=== PATIENT | female | born 2000 | race Caucasian/White ===

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

== ENCOUNTER 2020-04-09 23:03 | Emergency (ER) | payer MEDICAID ==
--- NOTE | 2020-04-10 | EDM.PDOC ---
ED HPI GENERAL MEDICAL PROBLEM - General Chief Complaint: Abdominal Pain Stated Complaint: upper abd pain Time Seen by Provider: 04/09/20 23:50 Source of Information: Reports: Patient History Limitations: Reports: No Limitations - History of Present Illness INITIAL COMMENTS - FREE TEXT/NARRATIVE: 3 weeks post , patient developed RUQ pain at 2100 tonight, took ibuprofen at home with minimal relief. She states she has had gallbladder issues throughout her , altered her diet. The pain started today after eating , then resolved but returned again. Denies SOB, CP, urinary symptoms, vaginal bleeding, constipation. Patient is nursing son. Onset: Today Quality: Reports: Sharp, Stabbing Severity: Mild Improves with: Reports: None Worsens with: Reports: Movement Associated Symptoms: Reports: No Other Symptoms Treatments W[employer] SUBCONTRACTOR: Reports: NSAIDS Right Middle Abdominal Pain Score (Numeric/FACES): 6 - Related Data Allergies Allergy/AdvReac Type Severity Reaction Status Date / Time No Known Allergies Allergy Verified 04/09/20 23:11 Past Medical History - Past Health History Medical/Surgical History: Denies Medical/Surgical History HEENT History: Reports: Other (See Below) Other HEENT History: Deviated septum Cardiovascular History: Reports: None Respiratory History: Reports: Asthma Gastrointestinal History: Reports: None Genitourinary History: Reports: None 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: Neurological History: Reports: None Psychiatric History: Reports: Anxiety Endocrine/Metabolic History: Reports: None - Infectious Disease History Infectious Disease History: Reports: Chicken Pox - Past Surgical History HEENT Surgical History: Reports: Other (See Below) Other HEENT Surgeries/Procedures: Did a surgery for re-alignment of the teeth last year GI Surgical History: Reports: None Social & Family History - Tobacco Use Smoking Status *Q: Never Smoker Second Hand Smoke Exposure: No - Caffeine Use Caffeine Use: Reports: Soda - Recreational Drug Use Recreational Drug Use: No ED ROS GENERAL - Review of Systems Review Of Systems: See Below Constitutional: Reports: No Symptoms HEENT: Reports: No Symptoms Respiratory: Reports: No Symptoms Cardiovascular: Reports: No Symptoms Endocrine: Reports: No Symptoms GI/Abdominal: Reports: Abdominal Pain, Diarrhea : Reports: No Symptoms Musculoskeletal: Reports: No Symptoms Skin: Reports: No Symptoms Neurological: Reports: No Symptoms Psychiatric: Reports: No Symptoms Hematologic/Lymphatic: Reports: No Symptoms Immunologic: Reports: No Symptoms ED EXAM, GI/ABD - Physical Exam Exam: See Below Exam Limited By: No Limitations General Appearance: Alert, No Apparent Distress Ears: Normal External Exam Nose: Normal Inspection Throat/Mouth: Normal Inspection Head: Atraumatic Neck: Normal Inspection, Non-Tender Respiratory/Chest: No Respiratory Distress Cardiovascular: Normal Peripheral Pulses, Regular Rate, Rhythm, No Edema, No JVD, No Murmur GI/Abdominal Exam: Normal Bowel Sounds, Soft, Tender (RUQ) (Female) Exam: Deferred Back Exam: Normal Inspection, Full Range of Motion. No: CVA Tenderness (R), CVA Tenderness (L) Extremities: Normal Inspection, Normal Range of Motion, No Pedal Edema Neurological: Alert, Oriented, Normal Cognition, Normal Gait, No Motor/Sensory Deficits Psychiatric: Normal Affect, Normal Mood Skin Exam: Warm, Dry, Intact, Normal Color Lymphatic: No Adenopathy Course - Vital Signs Last Recorded V/S: Last Vital Signs Temp 97 F 04/09/20 23:40 Pulse 96 04/09/20 23:40 Resp 18 04/09/20 23:40 BP 130/73 04/09/20 23:40 Pulse Ox 99 04/09/20 23:40 - Orders/Labs/Meds Orders: Active Orders 24 hr Category Date Time Status CBC WITH AUTO DIFF [HEME] Stat Lab 04/09/20 23:47 Ordered COMPREHENSIVE METABOLIC PN,CMP [CHEM] Stat Lab 04/09/20 23:46 Ordered LIPASE [CHEM] Stat Lab 04/09/20 23:46 Ordered UA RFX HERBERTH AND CULT IF INDIC [URIN] Stat Lab 04/09/20 23:45 Ordered Departure - Departure Time of Disposition: 00:55 Disposition: Home, Self-Care 01 Condition: Good Clinical Impression: Abdominal pain in female, Elevated lipase - Discharge Information *PRESCRIPTION DRUG MONITORING PROGRAM REVIEWED*: Not Applicable *COPY OF PRESCRIPTION DRUG MONITORING REPORT IN PATIENT DEB: Not Applicable Instructions: Abdominal or Pelvic Ultrasound, [id number], Abdominal Pain, Adult, Lipase Test Referrals: PCP,None [Primary Care Provider] - Additional Instructions: Return to ED for any increased or new concerning symptoms. Low fat diet, follow up with an ultrasound either at [place] tomorrow or with US next week. Scheduling will call you for appointment time. . Sepsis Event Note (ED) - Evaluation Sepsis Screening Result: No Definite Risk - Focused Exam Vital Signs: Vital Signs Temp Pulse Resp BP Pulse Ox 04/09/20 23:40 97 F 96 18 130/73 99 - Problem List Review Problem List Initiated/Reviewed/Updated: Yes - My Orders Last 24 Hours: My Active Orders 04/09/20 23:45 UA RFX HERBERTH AND CULT IF INDIC [URIN] Stat 04/09/20 23:46 COMPREHENSIVE METABOLIC PN,CMP [CHEM] Stat LIPASE [CHEM] Stat 04/09/20 23:47 CBC WITH AUTO DIFF [HEME] Stat - Assessment/Plan Last 24 Hours: My Active Orders 04/09/20 23:45 UA RFX HERBERTH AND CULT IF INDIC [URIN] Stat 04/09/20 23:46 COMPREHENSIVE METABOLIC PN,CMP [CHEM] Stat LIPASE [CHEM] Stat 04/09/20 23:47 CBC WITH AUTO DIFF [HEME] Stat Assessment:: Patient is pain free at this time. Plan: Patient is pain free at DC time. She would like to follow up at [facility] tomorrow for US. Referral for US was put in for next , scheduling will call her for time. She agrees to return to ED for an y increased of new concerning symptoms. Differential diagnosis: UTI, pyelonephritis, appendicitis, pneumonia, or bowel obstruction. Patient is not SOB, denies any CP. CT results show mildly enlarged liver and normal appendix. Urine shows no infection. Incidental finging of 3mm nonobstructing left kidney stone.
--- NOTE | 2020-04-10 11:07 | CT ---
DATE OF SERVICE: 04/10/20 CLINICAL DATA: abd pain UNENHANCED ABDOMEN AND PELVIC CT: Multislice acquisition through the abdomen and pelvis without IV or oral contrast was performed. No priors. The lung bases are clear. The heart size is normal. The liver is homogeneous in attenuation. No focal hepatic lesions. The gallbladder appears normal. No calcified gallstones. No pericholecystic fluid. The spleen appears normal. The pancreas appears normal. The right and left adrenals appear normal. The right kidney appears normal. There is a small nonobstructing renal calculi in the lower pole of the left kidney. The left kidney otherwise appears normal. No hydronephrosis or hydroureter. There is a small amount of fluid within the bladder. It appears grossly normal. The appendix is not dilated. No evidence of appendicitis. There are a couple of small fluid density foci in the left ovary, most likely representing ovarian cysts. No free air. No free fluid. No dilated loops of bowel. No adenopathy. No aortic aneurysm. No other significant findings. [id number] [facility]
== END 2020-04-10 00:45 | disposition home or self-care (01) ==
LOC: LB.ED 23:03
DX: O90.89 Other complications of the puerperium, not elsewhere classified (principal); R10.11 Right upper quadrant pain; R74.8 Abnormal levels of other serum enzymes; O99.13 Other diseases of the blood and blood-forming organs and certain disorders involving the immune mechanism complicating the puerperium; D72.829 Elevated white blood cell count, unspecified
CPT/HCPCS: 36415; 74176; 80053; 81001; 83690; 85025; 87086; 99284-25

== ENCOUNTER 2020-04-15 23:00 | Emergency (ER) | payer MEDICAID ==
[2020-04-15] MEDS ORDERED: Acetaminophen 325 MG Tab PO ONE (23:30)
--- NOTE | 2020-04-15 23:38 | EDM.PDOC ---
ED HPI GENERAL MEDICAL PROBLEM - General Chief Complaint: Abdominal Pain Stated Complaint: Gallbladder Time Seen by Provider: 04/15/20 23:00 Source of Information: Reports: Patient History Limitations: Reports: No Limitations - History of Present Illness INITIAL COMMENTS - FREE TEXT/NARRATIVE: Pt is 20 y/o with known GB disease since mid- about 8 mos ago. Advised to, if able, she was told to wait until delivery then follow-up for work-up. She is scheduled to be seen at 10:30AM tomorrow for US and follow-up with her primary. Pain was worse RUQ at 6pm tonight. She was told if her abdominal got worse to come back to ER to be rechecked. VS are normal and she does not appear to be in acute distress. Pt had eggs and cole for a late breakfast this morning. Onset: Today Onset Date: 04/15/20 Onset Time: 11:00 Duration: Hour(s):, Intermittent, Waxing/Waning Location: Reports: Abdomen Quality: Reports: Same as Previous Episode Improves with: Reports: Rest Associated Symptoms: Reports: No Other Symptoms. 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: Neurological History: Reports: None Psychiatric History: Reports: Anxiety Endocrine/Metabolic History: Reports: None - Infectious Disease History Infectious Disease History: Reports: Chicken Pox - Past Surgical History HEENT Surgical History: Reports: Other (See Below) Other HEENT Surgeries/Procedures: Did a surgery for re-alignment of the teeth last year GI Surgical History: Reports: None Social & Family History - Caffeine Use Caffeine Use: Reports: Soda ED ROS GENERAL - Review of Systems Review Of Systems: See Below Constitutional: Denies: Fever, Malaise, Weakness, Diaphoresis HEENT: Reports: No Symptoms Respiratory: Reports: No Symptoms Cardiovascular: Reports: No Symptoms Endocrine: Reports: No Symptoms GI/Abdominal: Reports: Abdominal Pain, Vomiting (vomed once at 4 pm but not currently nauseated.). Denies: Diarrhea, Distension : Reports: No Symptoms Musculoskeletal: Reports: No Symptoms Skin: Reports: No Symptoms Neurological: Reports: No Symptoms ED EXAM, GI/ABD - Physical Exam Exam: See Below Exam Limited By: No Limitations General Appearance: Alert, WD/WN, No Apparent Distress Ears: Normal External Exam Nose: Normal Inspection Throat/Mouth: Normal Inspection Head: Atraumatic Neck: Normal Inspection, Supple Respiratory/Chest: No Respiratory Distress, Lungs Clear, Normal Breath Sounds, No Accessory Muscle Use, Chest Non-Tender Cardiovascular: Normal Peripheral Pulses, Regular Rate, Rhythm GI/Abdominal Exam: Normal Bowel Sounds, Soft, No Organomegaly, No Distention, No Abnormal Bruit, No Mass, Other (possitive gee sign) Extremities: Normal Inspection Neurological: Alert, Oriented, CN II-XII Intact, Normal Cognition Skin Exam: Warm, Dry, Intact, Normal Color Course - Re-Assessments/Exams Free Text/Narrative Re-Assessment/Exam: 04/15/20 23:42 Pt did not appear to be in major distress; had +gee but VS were normal. She is schedule in 11 hrs to have GB US done. She was given Tylenol 1 gm and discharged Instruction to return if fever, persistent vomiting Keep appt for GB US as scheduled. Departure - Departure Time of Disposition: 23:45 Disposition: Home, Self-Care 01 Condition: Good Clinical Impression: Cholecystitis - Discharge Information *PRESCRIPTION DRUG MONITORING PROGRAM REVIEWED*: No *COPY OF PRESCRIPTION DRUG MONITORING REPORT IN PATIENT DEB: No Instructions: Gallbladder Eating Plan, Cholecystitis, [id number]
== END 2020-04-15 23:35 | disposition home or self-care (01) ==
LOC: LB.ED 23:00
DX: K81.9 Cholecystitis, unspecified (principal); J45.909 Unspecified asthma, uncomplicated
CPT/HCPCS: 99283; A9270; 99282

== ENCOUNTER 2022-08-21 10:50 | Emergency (ER) | payer MEDICAID ==
[2022-08-21] MEDS: Ketorolac 60 MG/2 ML SDV IM ONE (13:00)
== END 2022-08-21 13:05 | disposition home or self-care (01) ==
LOC: LB.ED 10:50
DX: R07.89 Other chest pain (principal)
CPT/HCPCS: 36415; 71045; 80053; 81025; 83690; 84484; 85027; 99282; 99285

== ENCOUNTER 2022-12-17 08:51 | Emergency (ER) | payer MEDICAID ==
[2022-12-17] MEDS ORDERED: Fluticasone NASAL Spray 16 GM Bottle ONE (09:30)
== END 2022-12-17 09:38 | disposition home or self-care (01) ==
LOC: LB.ED 08:51
DX: J01.00 Acute maxillary sinusitis, unspecified (principal); J45.909 Unspecified asthma, uncomplicated
CPT/HCPCS: 99283; A9270

== ENCOUNTER 2024-10-03 12:45 | Emergency (ER) | payer OTHER, MEDICAID ==
[2024-10-03] MEDS ORDERED: Sodium Chloride 0.9% 10 ML Syringe FLUSH PRN (13:00)
[2024-10-03] MEDS: Ondansetron 4 MG/2 ML SDV IVPUSH ONE (13:25)
[2024-10-03] MEDS: Sodium Chloride 0.9% 1,000 ML IV SCH (13:34)
[2024-10-03 13:51] LABS: APPEARANCE,URINE CLEAR (CLEAR); BILIRUBIN,URINE SMALL (NEGATIVE); COLOR,URINE YELLOW; GLUCOSE,URINE NEGATIVE (NEGATIVE); KETONES,URINE TRACE mg/dL (NEGATIVE); LEUKOCYTE ESTERASE,URINE NEGATIVE (NEGATIVE); NITRITE,URINE NEGATIVE (NEGATIVE); OCCULT BLOOD,URINE TRACE-LYSED (NEGATIVE); PH,URINE 5.5 (5.0-8.0); PROTEIN,URINE TRACE mg/dL (NEGATIVE); UROBILINOGEN,URINE 0.2 E.U./dL (0.2-1.0)
[2024-10-03 13:52] LABS: RBC,URINE 0-5 /HPF; SQUAMOUS EPITHELIAL CELLS,UR FEW /HPF; WBC,URINE 0-5 /HPF
[2024-10-03 13:53] LABS: BASOPHILS ABSOLUTE AUTO 0.01 K/uL (0.02-0.10); BASOPHILS PERCENT AUTO 0.1 % (0.0-0.5); EOSINOPHILS ABSOLUTE AUTO 0.21 K/uL (0.04-0.40); EOSINOPHILS PERCENT AUTO 2.4 % (1.0-5.0); HEMATOCRIT 44.4 % (37.0-47.0); HEMOGLOBIN 14.4 g/dL (11.5-16.5); MEAN CORPUSCULAR HEMOGLOBIN 25.6 pg (27.0-32.0); MEAN CORPUSCULAR HGB CONC 32.4 g/dL (31.0-35.0); MEAN CORPUSCULAR VOLUME 79 fL (76-96); MONOCYTES ABSOLUTE AUTO 0.42 K/uL (0.20-0.80); MONOCYTES PERCENT AUTO 4.8 % (3.0-10.0); NEUTROPHILS ABSOLUTE AUTO 7.38 K/uL (2.00-7.50); NEUTROPHILS PERCENT AUTO 84.7 % (45.0-70.0); PLATELET COUNT,PLT 232 K/uL (150-500); RED BLOOD CELL COUNT 5.63 M/uL (3.80-5.80); RED CELL DISTRIBUTION WIDTH 15.5 % (11.0-16.0); WHITE BLOOD CELL COUNT,WBC 8.7 K/uL (4.0-11.0)
[2024-10-03 13:54] LABS: ANION GAP 14.4 mmol/L (5.0-15.0); BUN/CREATININE RATIO 13.4 (6-25); CALCIUM 8.6 mg/dL (8.5-10.1); CARBON DIOXIDE,CO2 26.5 mmol/L (21.0-32.0); CREATININE 0.97 mg/dL (0.55-1.02); EST CRCL DRUG DOSING (CG) 67.48 mL/min; POTASSIUM,K 3.9 mmol/L (3.5-5.1)
== END 2024-10-03 15:12 | disposition home or self-care (01) ==
LOC: LB.ED 12:45
DX: K52.9 Noninfective gastroenteritis and colitis, unspecified (principal); Z91.048 Other nonmedicinal substance allergy status
CPT/HCPCS: 36415; 80048; 81001; 81025; 85025; 96361; 96374; 99283; 99284-25; J2405; J7030